=== PATIENT | female | born 1985 | race Caucasian/White ===

== ENCOUNTER → 2018-09-05 | Outpatient (CLI) | payer OTHER | LOC: M EKG 10:53 | DX: Z34.81 Encounter for supervision of other normal pregnancy, first trimester (principal); Z3A.11 11 weeks gestation of pregnancy | CPT/HCPCS: 93005 ==

== ENCOUNTER 2019-02-09 04:49 | Inpatient (IN) | payer OTHER ==
[~2019-02-09] VITALS: Ht 165.1 cm; Wt 117.5 kg
[~2019-02-09 04:49] MED LIST: FERR325T3 PO; FLUO20CA8 PO; INSUH10VL SC; INSUR SC; PRENTAB55 PO
[2019-02-09] MEDS ORDERED: LACTATED RINGER'S 1000 ML IV STA (05:08)
[2019-02-09] MEDS ORDERED: LR 1,000 ML IV SCH (05:08)
[2019-02-09] MEDS ORDERED: AZITHROMYCIN INJ 500 MG, VIAL MATE ADAPTER 1 EACH in D5W 250 ML IV ONE (05:15)
[2019-02-09] MEDS ORDERED: BICITRA 30ML SOLN UDC PO ONE (05:15)
[2019-02-09] MEDS ORDERED: LR 1,000 ML IV ONE (05:15)
[2019-02-09 05:29] LABS: HEMOGLOBIN 9.7 g/dl (12.0-15.5); MEAN CORPUSCULAR HEMOGLOBIN 26.2 pg (27.0-33.0); MEAN CORPUSCULAR HGB CONC 31.3 g/dl (32.0-36.5); MEAN CORPUSCULAR VOLUME 83.8 fl (80.0-96.0); PLATELET COUNT, AUTOMATED 282 10^3/uL (150-450); WHITE BLOOD COUNT 19.2 10^3/uL (4.0-10.0)
[2019-02-09 06:03] VITALS: BP 100/50
[2019-02-09] MEDS ORDERED: OXYTOCIN INJ 10 UNITS/ML VIAL (J2590) As Ordered ONE (07:16)
[2019-02-09] MEDS ORDERED: MORPHINE PRES-FREE INJ 10 MG/10 ML VIAL (J2274) As Ordered ONE (07:19)
[2019-02-09] MEDS ORDERED: BUPIVACAINE/DEXTROSE 0.75% 2 ML AMP As Ordered ONE (07:19)
[2019-02-09 07:24] VITALS: BP 100/58
[2019-02-09] MEDS ORDERED: NALOXONE INJ 0.4 MG/1 ML VIAL (J2310) IV PRN ×2 (07:50)
[2019-02-09] MEDS ORDERED: NALBUPHINE HCL 10 MG/ML AMP (J2300) IV PRN ×2 (07:50→09:15)
[2019-02-09] MEDS ORDERED: ONDANSETRON 4MG/2ML VIAL (J2405) IV PRN ×3 (07:50→09:15)
[2019-02-09] MEDS ORDERED: METOCLOPRAMIDE INJ 10MG/2ML VIAL (J2765) IV PRN (07:50)
[2019-02-09] MEDS ORDERED: diphenhydrAMINE INJ 50MG/ML VIAL (J1200) IV PRN (07:50)
[2019-02-09] MEDS ORDERED: KETOROLAC 60 MG/2 ML VIAL (J1885) As Ordered ONE (08:01)
[2019-02-09] MEDS ORDERED: ONDANSETRON 4MG/2ML VIAL (J2405) As Ordered ONE (08:01)
[2019-02-09 08:32] LABS: CORD GAS ABE A -4.8; CORD GAS ABE V -0.3; CORD GAS HCO3 V 25.8 MEQ/L; CORD GAS O2 SAT A 36.7 %; CORD GAS O2 SAT V 72.8 %; CORD GAS PCO2 A 60.3 mmHg; CORD GAS PH A 7.217 UNITS; CORD GAS PH V 7.349 UNITS; CORD GAS PO2 A 19.9 mmHg; CORD GAS PO2 V 28.5 mmHg; CORD GAS SBC A 19.2 MEQ/L; CORD GAS SBC V 23.6 MEQ/L; CORD GAS TCO2 A 25.8 MEQ/L; CORD GAS TCO2 V 27.3 MEQ/L
[2019-02-09] MEDS ORDERED: OXYTOCIN DRIP 30 UNITS in APPROPRIATE DILUENT 1 EA IV SCH (09:02)
[2019-02-09] MEDS ORDERED: MEPERIDINE INJ 25 MG/ML VIAL (J2175) IV PRN (09:15)
[2019-02-09] MEDS ORDERED: PERCOCET 5MG/325MG TAB PO PRN ×2 (09:15)
[2019-02-09] MEDS ORDERED: RHOGAM 300 MCG (1500 IU) INJ (J2790) IM SCH (09:15)
[2019-02-09] MEDS ORDERED: HYDROMORPHONE HCL 0.5 MG/ 0.5 ML SYRINGE (J1170 PER 1) IV PRN (09:15)
[2019-02-09] MEDS ORDERED: MEASLES,MUMPS,RUBELLA VACCINE INJ (MMR-II) (90707) SC SCH (09:15)
[2019-02-09] MEDS ORDERED: DOCUSATE SODIUM 100 MG CAP PO PRN (09:15)
[2019-02-09] MEDS ORDERED: fentaNYL 100 MCG/2 ML INJECTION (J3010) IV PRN (09:15)
[2019-02-09] MEDS ORDERED: DEXTROSE 50% 50 ML SYRINGE IV PRN (09:30)
[2019-02-09] MEDS ORDERED: GLUCAGON FOR INJ 1 MG VIAL (J1610) SC PRN (09:30)
[2019-02-09] MEDS ORDERED: GLUCOSE 4 GM CHEW TABLET PO PRN (09:30)
[2019-02-09] MEDS: HumaLOG INSULIN (NovoLOG) PER UNIT SC SCH (10:52)
[2019-02-09 13:20] VITALS: BP 131/66
[2019-02-09] MEDS: KETOROLAC 30 MG/ML VIAL (J1885) IV SCH ×2 (14:57→21:29)
[2019-02-09 18:05] VITALS: BP 113/71
[2019-02-09 22:31] VITALS: BP 115/66
[2019-02-09] MEDS: PERCOCET 5MG/325MG TAB PO PRN (23:34)
[2019-02-10 02:30] VITALS: BP 121/61
[2019-02-10] MEDS: KETOROLAC 30 MG/ML VIAL (J1885) IV SCH (03:25)
[2019-02-10 06:15] VITALS: BP 127/74
[2019-02-10 07:42] LABS: HEMOGLOBIN 9.9 g/dl (12.0-15.5); MEAN CORPUSCULAR HEMOGLOBIN 26.4 pg (27.0-33.0); MEAN CORPUSCULAR HGB CONC 30.9 g/dl (32.0-36.5); MEAN CORPUSCULAR VOLUME 85.3 fl (80.0-96.0); PLATELET COUNT, AUTOMATED 224 10^3/uL (150-450); RED BLOOD COUNT 3.75 10^6/uL (4.00-5.40); WHITE BLOOD COUNT 12.1 10^3/uL (4.0-10.0)
[2019-02-10] MEDS: metFORMIN (GLUCOPHAGE) 500 MG TAB PO SCH ×2 (08:00→18:43)
[2019-02-10] MEDS: PRENATAL VITAMINS CHEWABLE TABLET PO SCH (08:05)
[2019-02-10] MEDS: PERCOCET 5MG/325MG TAB PO PRN (08:05)
--- NOTE | 2019-02-10 08:47 | IPNPDOC ---
Progress Note Date of Service: Feb 10, 2019 Progress Note Qi is a 33 yo G2 now P2 who underwent an uncomplicated scheduled RLTCS with BTL yesterday (09Feb2019) at 36 weeks gestation due to a history of a prior uterine rupture. She is currently recovering on the butts. No acute events overnight. Baby is in the NICU and stable. Qi reports feeling well this AM. She has mild abdominal soreness but the pain medications are helping. She is tolerating a regular diet. She has ambulated without difficulty. Aburto catheter was just removed and she voided on her own. She denies any fevers/chills, SOB, chest pain. Lochia has been moderate. Vitals - VSS, normotensive, afebrile, non tachycardic General - AAOX3, sitting up in bed, NAD Abdomen - Fundus firm at U-2. No fundal tenderness. Bandage removed over incision. Incision is clean/dry/intact. Steri strips in place. minimal tenderness to palpation. Extremities - SCDs in place. No edema Urine output - excellent, >100ml/hr Labs: Pre op H/H: 9.7/31.0 --> post op this AM 9.9/32.0 Qi is doing well and is making an appropriate recovery. Continue regular diet, ambulation, and IS use. Continue routine care. Blood sugar 113 this AM. Will continue QID fingersticks, but change from insulin to metformin for BS control. Anticipate DC home tomorrow or boarder if baby remains in the hospital. Tomas Delgado, VS, I&O, 24H, [place] Vital Signs/I&O Vital Signs Date Time Temp Pulse Resp B/P (MAP) Pulse Ox O2 Delivery O2 Flow Rate FiO2 02/10/19 08:05 18 02/10/19 06:15 97.3 73 127/74 (91) 02/10/19 02:30 96 I&O- Last 24 Hours up to 6 AM 02/10/19 06:00 Intake Total 5285 ml Output Total 4100 ml Balance 1185 ml Laboratory Data 24H LABS Laboratory Tests 2 02/09/19 19:15: Bedside Glucose (Misc Panel) 139H 02/10/19 07:01: Nucleated Red Blood Cells % (auto) 0.0 02/10/19 07:39: Bedside Glucose (Misc Panel) 113H CBC/BMP Laboratory Tests 02/10/19 07:01 Red Blood Count 3.75 L, Mean Corpuscular Volume 85.3, Mean Corpuscular Hemoglobin 26.4 L, Mean Corpuscular Hemoglobin Concent 30.9 L, Red Cell Distribution Width 14.9 H TOMAS DELGADO DO Feb 10, 2019 08:47
[2019-02-10 10:00] VITALS: BP 113/61
[2019-02-10] MEDS: IBUPROFEN 800 MG TAB PO SCH ×2 (11:27→18:43)
[2019-02-10 14:00] VITALS: BP 119/63
[2019-02-10 17:46] VITALS: BP 134/67
[2019-02-10 22:00] VITALS: BP 138/70
[2019-02-11 02:00] VITALS: BP 123/73
[2019-02-11] MEDS: IBUPROFEN 800 MG TAB PO SCH ×2 (02:09→10:04)
[2019-02-11 06:00] VITALS: BP 125/70
[2019-02-11] MEDS: PRENATAL VITAMINS CHEWABLE TABLET PO SCH (08:46)
[2019-02-11] MEDS: metFORMIN (GLUCOPHAGE) 500 MG TAB PO SCH (08:46)
[2019-02-11] MEDS: PERCOCET 5MG/325MG TAB PO PRN (08:47)
[2019-02-11] MEDS ORDERED: EXCEDRIN MIGRAINE TABLET PO PRN (09:45)
--- NOTE | 2019-02-11 10:20 | IPNPDOC ---
Text Note Date of Service The patient was seen on 02/11/19. NOTE Qi is a 33 yo G2 now P2 who underwent an uncomplicated scheduled RLTCS with BTL 2 days ago ([id number]). She is currently recovering on the butts. No acute events overnight except has a migraine RAMIREZ now. Qi reports feeling well this AM. Has had a migraine the last few hours, worse on her right side. She has mild abdominal soreness but the pain medications are helping. She is tolerating a regular diet. She has ambulated without difficulty. Has voided on her own. She denies any fevers/chills, SOB, chest pain. Lochia has been moderate. Vitals - VSS, normotensive, afebrile, non tachycardic General - AAOX3, sitting up in bed, NAD Abdomen - Fundus firm at U-2. No fundal tenderness. Incision is clean/dry/intact. Steri strips in place. minimal tenderness to palpation. Extremities - SCDs in place. No edema Labs: Pre op H/H: 9.7/31.0 --> post op yesterday AM 9.9/32.0 a/p: Migraine RAMIREZ, will tx with excedrin, states this usually works. Continue regular diet, ambulation, and IS use. Continue routine care. Anticipate DC later this afternoon after migraine better. Cont Postop routine care. Sessions A-FIB/RAMSES A-FIB History Current/History of A-Fib/PAF?: No Current Oral Anticoagulant The: No VS,Fishbone, I+O VS, Fishbone, I+O Vital Signs Date Time Temp Pulse Resp B/P (MAP) Pulse Ox O2 Delivery O2 Flow Rate FiO2 02/11/19 09:17 20 02/11/19 06:00 99.0 71 125/70 (88) 96 I&O- Last 24 Hours up to 6 AM 02/11/19 06:00 Output Total 1400 ml Balance -1400 ml SESSIONS,COTY Miranda MD Feb 11, 2019 10:20
--- NOTE | 2019-02-11 16:32 | DS.PDOC ---
Discharge Summary General Date of Admission Feb 09, 2019 at 04:49 Date of Discharge [id number] Discharge Summary ADMITTING DIAGNOSES: Prior h/o uterine rupture DISCHARGE DIAGNOSES: RCS/BTL HOSPITAL COURSE: delivery uncomplicated. course uncomplicated except for a migraine that improved with Excedrin Migraine on POD2. DISCHARGE MEDICATIONS: Motrin, Lanolin, Percocet, Colace DISCHARGE INSTRUCTIONS: Nothing in the vagina for 6 weeks. No driving for 2 weeks. No bathing for 4 weeks, shower only. F/U in OBGYN clinic in 1-[address] He for incision check and routine follow-up in 6-8 weeks. Sessions Vital Signs/I&Os Vital Signs Date Time Temp Pulse Resp B/P (MAP) Pulse Ox O2 Delivery O2 Flow Rate FiO2 02/11/19 09:17 20 02/11/19 06:00 99.0 71 125/70 (88) 96 I&O- Last 24 Hours up to 6 AM 02/11/19 06:00 Output Total 1400 ml Balance -1400 ml Laboratory Data Labs 24H Laboratory Tests 2 02/10/19 17:09: Bedside Glucose (Misc Panel) 126H 02/10/19 20:54: Bedside Glucose (Misc Panel) 126H 02/11/19 05:56: Bedside Glucose (Misc Panel) 113H 02/11/19 12:07: Bedside Glucose (Misc Panel) 121H FSBS Laboratory Tests Test 02/10/19 17:09 02/10/19 20:54 02/11/19 05:56 02/11/19 12:07 Range/Units Bedside Glucose (Misc Panel) 126 126 113 121 70-105 MG/DL Discharge Medications Scheduled Ferrous Sulfate (Ferrous Sulfate) 325 Mg Tablet.dr, 325 MG PO DAILY, (Reported) Fluoxetine Hcl (Fluoxetine HCl) 20 Mg Capsule, 20 MG PO DAILY, (Reported) Insulin Human Lispro (Novolog) 100 Unit/1 Ml Vial, 10 UNITS SC BIDWM, (Reported) Insulin Human Regular (Novolin R) 100 Unit/1 Ml Vial, 18 UNITS SC QAM, (Reported) Insulin Human Regular (Novolin R) 100 Unit/1 Ml Vial, 30 UNITS SC QPM, (Reported) Dfj102/Iron Fum/Folic/Docusate ( 19 Tablet) 1 Each Tablet, 1 TAB PO DAILY, (Reported) Allergies Coded Allergies: No Known Allergies (Unverified , 02/02/19) NICOLE,COTY Miranda MD Feb 11, 2019 16:32
[2019-02-11] MEDS ORDERED: IBUP-1114 PO (16:42)
[2019-02-11] MEDS ORDERED: COLA100C5 PO (16:43)
[2019-02-11] MEDS ORDERED: OXYC1TAB23 PO ×2 (16:44→16:46)
--- NOTE | 2019-02-12 21:18 | RO ---
DATE OF PROCEDURE: 02/09/2019 PREPROCEDURE DIAGNOSIS: History of uterine rupture requiring emergency section. Satisfied parity. POSTPROCEDURE DIAGNOSIS: History of uterine rupture requiring emergency section. Satisfied parity. PROCEDURE: Repeat low transverse section with bilateral tubal ligation. SURGEON: Dr. Zeeshan He SUPERVISOR [employer]: Dr. Param Vargas ANESTHESIA: Spinal. FLUIDS: 2100 mL of lactated Ringer's. URINE OUTPUT: 400 mL. ESTIMATED BLOOD LOSS: 500 mL. COMPLICATIONS: None. ANTIBIOTICS GIVEN: 2 grams of Ancef and 500 mg of azithromycin. DETAILED PROCEDURE DESCRIPTION: The risks, benefits, indications, and alternatives of the procedure were reviewed with the patient and informed consent was obtained. The patient was taken to the operating room where spinal anesthesia was obtained without difficulty. She was then prepped and draped in the usual sterile fashion in the dorsal supine position. A surgical time-out was then performed in which the patient's identity and planned procedure were verified with the operative team. A Aburto catheter had been placed previously. A Pfannenstiel skin incision was then made with a scalpel and carried through to the underlying layer of fascia using Bovie electrocautery. The fascia was incised in the midline, and the incision was extended laterally with Suresh scissors. The superior aspect of the fascial incision was grasped with Li clamps, elevated and the underlying rectus muscles were dissected off with a scalpel. Attention was then turned to the inferior aspect of this incision, which in a similar fashion was grasped, tented up with Li clamps, and the rectus muscles were dissected off with Suresh scissors. The rectus muscles were then at the midline. The peritoneum was identified and entered digitally. The peritoneal incision was then extended horizontally and superiorly with good visualization of the bladder. A bladder blade was then inserted into the abdomen. The vesicouterine peritoneum was then identified and entered sharply with the scalpel. This incision was extended laterally, and a bladder flap was created digitally. Next, the lower uterine segment was incised in a transverse fashion with a scalpel. The uterine incision was then extended manually. A copious amount of clear fluid was noted upon entry into the uterus. The was found in cephalic presentation, but was nearly floating in the uterus and there was no head engagement, which made delivery initially difficult. A Kiwi vacuum was then called for and opened on the field and tested and found to be functional. The Kiwi vacuum was then placed on the head at the flexion point. The Kiwi vacuum was then activated up to the green zone. Using gentle traction, the head was elevated to the level of the hysterotomy and the head was delivered. The Kiwi vacuum was then removed from the head and discarded off the field. The remainder of the delivered without difficulty. The nose and mouth were then suctioned with a bulb syringe and the cord was doubly clamped and cut. The infant was then handed off to the awaiting pediatricians. Cord blood gases were then obtained. The placenta was then removed manually. The uterus was then exteriorized and cleared of all clots and debris. The uterine incision was then repaired with #0 Monocryl suture in a running locked fashion. A second layer of #0 Monocryl was then used to imbricate the hysterotomy in a vertical fashion. Inspection revealed excellent hemostasis. The posterior cul-de-sac was then irrigated. Inspection of the remainder of the uterus revealed a scarred area on the left lateral aspect that was likely due to her prior uterine rupture site, but there was no defect. Attention was then turned to the patient's fallopian tubes. The right fallopian tube was then grasped at the isthmic portion with a Mcalester clamp and the underlying mesosalpinx was dissected away using Bovie electrocautery. Using a #0 plain gut suture, the fallopian tube segment was then suture ligated on both sides and the midline portion of the fallopian tube segment was then amputated and sent to pathology. An identical procedure was then performed on the patient's left fallopian tube. Thus, tubal sterilization was completed via the [place] method. Inspection of the operative sites of the fallopian tubes revealed hemostasis. The uterus was then returned to the abdomen, and the hysterotomy was again inspected and found to be hemostatic. The paracolic gutters were then inspected and cleared of all clots and debris. The bladder blade was removed from the abdomen. The peritoneum was then closed with #3-0 Vicryl suture in a running fashion. The fascia was then closed with #0 Vicryl suture in a running fashion. The subcutaneous fat was closed with #3-0 Vicryl suture in a running fashion. The skin was closed with #4-0 Monocryl suture in a subcuticular fashion. The incision was then dressed with Steri-Strips and a pressure dressing was applied. At the completion of the case, a bimanual exam was performed, which revealed good uterine tone and minimal vaginal bleeding. The patient tolerated the procedure well. Sponge, lap, instrument and needle counts were correct times three. The patient was taken to the recovery room in stable condition. scores were 5, 8 and 9 and the weight was 3512 grams or 7 pounds 12 ounces. It was a male . SHER[facility]
== END 2019-02-11 17:55 | disposition home or self-care (01) | DRG 783 ==
LOC: M LDI 04:49 → M OBS 10:24
PROVIDERS: ADMIT Obstetrics & Gynecology; ATTEND Obstetrics & Gynecology
PROC: 0UB70ZZ Excision of Bilateral Fallopian Tubes, Open Approach (ICD-10-PCS; 2019-02-09)
PROC: 10D00Z1 Extraction of Products of Conception, Low, Open Approach (ICD-10-PCS; principal; 2019-02-09 07:30)
DX: O34.211 Maternal care for low transverse scar from previous cesarean delivery (principal); O24.82 Other pre-existing diabetes mellitus in childbirth; O99.355 Diseases of the nervous system complicating the puerperium; Z37.0 Single live birth; Z30.2 Encounter for sterilization; Z3A.36 36 weeks gestation of pregnancy; G43.909 Migraine, unspecified, not intractable, without status migrainosus; Z79.4 Long term (current) use of insulin; E66.9 Obesity, unspecified; F32.9 Major depressive disorder, single episode, unspecified; O99.214 Obesity complicating childbirth; O99.344 Other mental disorders complicating childbirth